=== PATIENT | female | born 1980 | race Two or more races ===

== ENCOUNTER 2019-11-15 21:40 | Emergency (ER) | payer OTHER ==
[~2019-11-15] VITALS: Ht 152.4 cm; Wt 90.7 kg
[2019-11-15 21:48] VITALS: Ht 152.4 cm; Wt 90.7 kg
[2019-11-15 23:38] LABS: BASOPHIL % 0.5 % (0-2); PLATELET COUNT 175 x10^3mcL (130-400); RED CELL DISTRIBUTION WIDTH 14.4 % (11.5-14.5)
[2019-11-15 23:59] LABS: CALCIUM 8.8 mg/dL (8.5-10.1); CARBON DIOXIDE 29.2 mmol/L (21-32); CHLORIDE SERUM 107 mmol/L (98-107); CREATININE SERUM 0.7 mg/dL (0.6-1.0); GFR1 > 60 mL/min; GLUCOSE SERUM 95 mg/dL (74-106); POTASSIUM SERUM 4.3 mmol/L (3.5-5.1); SODIUM SERUM 140 mmol/L (136-145)
[2019-11-16 00:05] LABS: ALBUMIN 3.6 g/dL (3.4-5.0); ALKALINE PHOSPHATASE 73 U/L (46-116); ALT/SGPT 22 U/L (14-59); AST/SGOT 19 U/L (15-37); BILIRUBIN TOTAL 0.34 mg/dL (0.20-1.00); TOTAL PROTEIN, SERUM 7.2 g/dL (6.4-8.2)
[2019-11-16 00:41] VITALS: BP 112/65
== END 2019-11-16 00:41 | disposition home or self-care (01) ==
LOC: ED 21:40
PROVIDERS: Emergency Medicine
DX: M94.0 Chondrocostal junction syndrome [Tietze] (principal); R07.89 Other chest pain
CPT/HCPCS: 36415; J1885